=== PATIENT | male | born 1980 | race Caucasian/White ===

== ENCOUNTER 2020-10-28 17:34 | Emergency (ER) | payer OTHER, SELFPAY ==
[2020-10-28 17:46] VITALS: BP 149/97; PULSE 110; RESP 18; TEMP 37; O2SAT 100
--- NOTE | 2020-10-28 18:38 | ED.EAR ---
HPI - Ear Problem General Chief complaint: Ear Stated complaint: constance ear clogged Time Seen by Provider: 10/28/20 18:38 Source: patient and RN notes reviewed Mode of arrival: ambulatory Limitations: no limitations History of Present Illness HPI Narrative: 40-year-old male presents with concern for bilateral clogged ears. He denies pain, drainage. Reports he usually needs his ears cleaned out once every 1 or 2 years. He denies using Q-tips. MD Complaint: decreased hearing Related Data Allergies Allergy/AdvReac Type Severity Reaction Status Date / Time No Known Allergies Allergy Verified 10/28/20 18:50 Review of Systems Review of Systems: CONSTITUTIONAL: Denies malaise, chills, sweats, or fever. ENT: Denies rhinorrhea, congestion, sinus pain, otalgia or sore throat. Reports clogged ears All systems reviewed & are unremarkable except as noted in HPI and below PMFSH Comments At time of signature, agree with nursing past medical, surgical, social and family history. There is no relevant family history pertinent to the presenting complaint Exam Narrative: GENERAL: Well-appearing, well-nourished, and in no acute distress. HEAD: Normocephalic EYES: PERRLA, conjunctivae clear ENT: Mucous membranes moist. TM not visible due to cerumen impaction bilaterally; no tragal tenderness. NECK: Supple. No lymphadenopathy CHEST: No respiratory distress, speaks in full sentences. HEART: Regular rate and rhythm. SKIN: Warm, dry, no rash. NEURO: Alert and oriented x3. PSYCH: Normal mood and affect Course Course Emergency Course: Patient is aware of diagnosis, understands and agrees to treatment plan. Anticipatory guidance given. Patient agrees to follow-up as directed and is aware of reasons to seek care at the emergency department. Portions of this record may have been created with voice recognition software Vital Signs Vital signs: Vital Signs Temperature 98.6 F 10/28/20 17:46 Pulse Rate 110 H 10/28/20 17:46 Respiratory Rate 18 10/28/20 17:46 Blood Pressure 149/97 H 10/28/20 17:46 Pulse Oximetry 100 10/28/20 17:46 Temperature 98.6 F 10/28/20 17:46 Pulse Rate 110 H 10/28/20 17:46 Respiratory Rate 18 10/28/20 17:46 Blood Pressure 149/97 H 10/28/20 17:46 Pulse Oximetry 100 10/28/20 17:46 Reviewed. Pt has been instructed to follow up with his primary care provider within the next week regarding his elevated blood pressure today. Procedures Ear Wax Removal Both Ears: Ear Wax Removal Date: 10/28/20 Ear Wax Removal Time: 18:43 Cerumenolytic Used: 5-10% Sodium Bicarb solution Results: Re-examined: cerumen removed completely (Left ear) and some cerumen remains (Right ear) TM Examination: TM(s) intact, normal appearance Ear Canal Exam: atraumatic Patient Tolerated Procedure: well and no complications Complications: no problems Technique: ear canal irrigated (Left ear) and ear canal curetted (Right ear) Medical Decision Making MDM Narrative Medical decision making narrative: Differential diagnosis considered:Otitis media, otitis externa, cerumen impaction, foreign body, eustachian tube dysfunction. Exam findings show no acute concerns or changes; patient is non-toxic appearing and is in no distress. Patient is appropriate for outpatient treatment and follow-up. Vital Signs Vital Signs: Vital Signs Temperature 98.6 F 10/28/20 17:46 Pulse Rate 110 H 10/28/20 17:46 Respiratory Rate 18 10/28/20 17:46 Blood Pressure 149/97 H 10/28/20 17:46 Pulse Oximetry 100 10/28/20 17:46 Temperature 98.6 F 10/28/20 17:46 Pulse Rate 110 H 10/28/20 17:46 Respiratory Rate 18 10/28/20 17:46 Blood Pressure 149/97 H 10/28/20 17:46 Pulse Oximetry 100 10/28/20 17:46 Critical Care Time Critical Care Time Critical Care Time: No Discharge Plan Discharge Clinical Impression: Cerumen impaction Qualifiers: Laterality: bilateral Qual
== END 2020-10-28 18:51 | disposition home or self-care (01) ==
PROVIDERS: Emergency Provider Nurse Practitioner
DX: H61.23 Impacted cerumen, bilateral (principal)
CPT/HCPCS: 69210; 99212; G0463

== ENCOUNTER 2021-04-03 08:31 | Emergency (ER) | payer OTHER, SELFPAY ==
[2021-04-03 08:41] VITALS: BP 156/107; PULSE 81; RESP 16; TEMP 36.6; O2SAT 98
--- NOTE | 2021-04-03 08:48 | ED.EAR ---
HPI - Ear Problem General Chief complaint: Ear Stated complaint: right ear clogged Time Seen by Provider: 04/03/21 08:48 Source: patient Mode of arrival: ambulatory Limitations: no limitations History of Present Illness HPI Narrative: Ezequiel Griffith is a 40 yo male with no PMH according to pt (record documents metformin, ED) who comes to [facility] with right ear clogging once cerumen removed. He has high blood pressure reading today and denies that he is being treated for hypertension. Patient is a non-smoker nondrinker Related Data Home Medications Medication Instructions Recorded Confirmed metformin 500 mg PO DAILY 04/03/21 04/03/21 sildenafil 50 mg PO PRN PRN 04/03/21 04/03/21 Allergies Allergy/AdvReac Type Severity Reaction Status Date / Time No Known Allergies Allergy Verified 04/03/21 08:48 Review of Systems Review of Systems: CONSTITUTIONAL: Denies fever, chills, sweats. EYES: Denies visual changes, redness, discharge. ENT: Denies rhinorrhea, congestion, sore throat, otalgia. CARDIOVASCULAR: Denies chest pain, palpitations, edema. RESPIRATORY: Denies dyspnea, wheezing, cough GASTROINTESTINAL: Denies abdominal pain, nausea, vomiting, diarrhea. GENITOURINARY: Denies dysuria, hematuria, abnormal discharge SKIN: Denies rash or itching. NEUROLOGIC: Denies numbness, or focal weakness. PSYCHIATRIC: Denies anxiety or depression. Right ear has wax PMFSH Past Medical History Medical History Erectile dysfunction Prediabetes Social History Social History (Updated 04/03/21 @ 09:07 by Miriam Pham CNP) Smoking status: Never smoker Alcohol intake: never Comments At time of signature, I agree with nursing past medical, surgical, social and family history. There is no relevant family history pertinent to the presenting complaint. Exam Narrative: GENERAL: This is a well-nourished, well-developed patient, in no distress. HEAD: normocephalic, atraumatic. EYES: . Sclera clear/white. Vision is grossly intact. EARS: External ears normal, right ear has cerumen. Hearing grossly intact. NOSE: External nose normal without nasal discharge, nares without redness, no rhinorrhea. THROAT: Mucous membranes moist, NECK: Neck supple, non-tender CARDIOVASCULAR: Regular rate and rhythm . RESPIRATORY: Clear to auscultation. Breath sounds equal bilaterally. No wheezes, rales, or rhonchi. GASTROINTESTINAL: Not done SKIN: warm, intact with no suspicious lesions or rash, good texture and turgor. NEURO: awake, alert, and oriented to person, place and time. There were no obvious focal neurologic abnormalities. EXTREMITIES: Normal range of motion. Course Course Emergency Course: Patient comes with right ear decreased hearing Removal cerumen Level of Care: Express Care Visit Vital Signs Vital signs: Vital Signs Temperature 97.9 F 04/03/21 08:41 Pulse Rate 81 04/03/21 08:41 Respiratory Rate 16 04/03/21 08:41 Blood Pressure 156/107 H 04/03/21 08:41 Pulse Oximetry 98 04/03/21 08:41 Temperature 97.9 F 04/03/21 08:41 Pulse Rate 81 04/03/21 08:41 Respiratory Rate 16 04/03/21 08:41 Blood Pressure 156/107 H 04/03/21 08:41 Pulse Oximetry 98 04/03/21 08:41 Procedures Ear Wax Removal Right Ear: Ear Wax Removal Date: 04/03/21 Ear Wax Removal Time: 08:50 Results: Re-examined: cerumen removed completely TM Examination: TM(s) intact, normal appearance Ear Canal Exam: atraumatic Patient Tolerated Procedure: well Complications: no problems Technique: ear canal irrigated Medical Decision Making Differential Diagnosis Differential Diagnosis: Earwax versus otitis media Vital Signs Vital Signs: Vital Signs Temperature 97.9 F 04/03/21 08:41 Pulse Rate 81 04/03/21 08:41 Respiratory Rate 16 04/03/21 08:41 Blood Pressure 156/107 H 04/03/21 08:41 Pulse Oximetry 98
== END 2021-04-03 09:15 | disposition home or self-care (01) ==
PROVIDERS: Emergency Provider Nurse Practitioner
DX: H61.21 Impacted cerumen, right ear (principal); R73.03 Prediabetes
CPT/HCPCS: 69209; 99212; G0463

== ENCOUNTER 2024-06-28 17:34 | Emergency (ER) | payer OTHER, SELFPAY ==
[2024-06-28 17:45] VITALS: BP 183/99; PULSE 100; RESP 16; TEMP 36.5; O2SAT 98
--- NOTE | 2024-06-28 18:20 | ED.EAR ---
HPI - Ear Problem General Chief complaint: Ear Stated complaint: Both Ears Irritation Time Seen by Provider: 06/28/24 18:13 Source: patient and RN notes reviewed Mode of arrival: ambulatory Limitations: no limitations History of Present Illness HPI Narrative: 43-year-old Male presents with concern for clogged right ear. He denies pain or drainage. He reports history of having have his ears cleaned out. He acute MD Complaint: ear pain Related Data Home Medications ?Medication ?Instructions ?Recorded ?Confirmed ?Last Taken ?Type metformin 500 mg tablet,extended 500 mg PO DAILY 04/03/21 04/03/21 Unknown History release 24 hr sildenafil 50 mg tablet 50 mg PO PRN PRN Erectile 04/03/21 04/03/21 Unknown History Dysfunction aripiprazole 5 mg tablet mg 06/28/24 Unknown History bupropion HCl 300 mg 24 hr tablet, mg PO 06/28/24 Unknown History extended release escitalopram oxalate 10 mg tablet mg 06/28/24 Unknown History Allergies Allergy/AdvReac Type Severity Reaction Status Date / Time No Known Allergies Allergy Verified 06/28/24 17:48 Review of Systems Review of Systems: ENT: Denies rhinorrhea, congestion, sinus pain, and sore throat. Reports right ear fullness All systems reviewed & are unremarkable except as noted in HPI and below PMFSH Past Medical History Medical History Erectile dysfunction Prediabetes Social History Social History (Updated 04/03/21 @ 09:07 by Miriam Pham, JEAN) Smoking status: Never smoker Alcohol intake: never Comments At time of signature, agree with nursing past medical, surgical, social and family history. There is no relevant family history pertinent to the presenting complaint Exam Narrative: GENERAL: Well-appearing, well-nourished, and in no acute distress. HEAD: Normocephalic EYES: PERRLA, conjunctivae clear ENT: Nares clear. Mucous membranes moist. TM pearly tanner with dull light reflex on the left common TM not visible on the right due to cerumen impaction; no tragal tenderness. NECK: Supple. CHEST: No respiratory distress, speaks in full sentences. HEART: Regular rate and rhythm. SKIN: Warm, dry, no rash. NEURO: Alert and oriented x3. PSYCH: Normal mood and affect Course Course Emergency Course: Patient is aware of diagnosis, understands and agrees to treatment plan. Anticipatory guidance given. Patient agrees to follow-up as directed and is aware of reasons to seek care at the emergency department. Portions of this record may have been created with voice recognition software Level of Care: [facility] Visit Vital Signs Vital signs: Vital Signs Temperature 97.7 F 06/28/24 17:45 Pulse Rate 100 06/28/24 17:45 Respiratory Rate 16 06/28/24 17:45 Blood Pressure 183/99 H 06/28/24 17:45 Pulse Oximetry 98 06/28/24 17:45 Oxygen Delivery Room Air 06/28/24 17:45 Temperature 97.7 F 06/28/24 17:45 Pulse Rate 100 06/28/24 17:45 Respiratory Rate 16 06/28/24 17:45 Blood Pressure 183/99 H 06/28/24 17:45 Pulse Oximetry 98 06/28/24 17:45 Oxygen Delivery Room Air 06/28/24 17:45 Reviewed. Procedures Ear Wax Removal Right Ear: Ear Wax Removal Date: 06/28/24 Ear Wax Removal Time: 18:15 Cerumenolytic Used: other (Hydrogen peroxide) Results: Re-examined: cerumen removed completely TM Examination: TM(s) intact, normal appearance Ear Canal Exam: atraumatic Patient Tolerated Procedure: well and no complications Complications: no problems Technique: ear canal irrigated and ear canal curetted Medical Decision Making MDM Narrative Medical decision making narrative: I evaluated this in the [facility]. History is obtained from patient who is an independent historian and physical exam was performed.? Available medical records were reviewed. ? Exam findings and relevant testing show no acute concerns or changes; patient is non-toxic appearing and is in no distress. Differential diagnosis considered: Palmer virus, strep pharyngitis, allergic rhinitis, upper respiratory tract infection, sinusitis, rhinosinusitis, nasopharyngitis. viral pharyngitis, otitis media, otitis externa, otitis effusion, cerumen impaction, foreign body. Exam findings show no acute concerns or changes; patient is non-toxic appearing and is in no distress. Patient is appropriate for outpatient treatment and follow-up. ? Differential diagnosis and treatment plan were discussed with the patient. Patient agrees with discussion and after shared medical decision making agrees with plan of care. All questions were answered to the patient's satisfaction. Patient is appropriate for outpatient treatment and follow-up. Vital Signs Vital Signs: Vital Signs Temperature 97.7 F 06/28/24 17:45 Pulse Rate 100 06/28/24 17:45 Respiratory Rate 16 06/28/24 17:45 Blood Pressure 183/99 H 06/28/24 17:45 Pulse Oximetry 98 06/28/24 17:45 Oxygen Delivery Room Air 06/28/24 17:45 Temperature 97.7 F 06/28/24 17:45 Pulse Rate 100 06/28/24 17:45 Respiratory Rate 16 06/28/24 17:45 Blood Pressure 183/99 H 06/28/24 17:45 Pulse Oximetry 98 06/28/24 17:45 Oxygen Delivery Room Air 06/28/24 17:45 Critical Care Time Critical Care Time Critical Care Time: No Discharge Plan Discharge Clinical Impression: Cerumen impaction Patient Disposition: Home Condition: Stable Instructions: Carbamide Peroxide (Into the ear) Additional Instructions: Ear wax impaction is when ear wax builds up enough to cause symptoms. Normally, ear wax helps to protect the insides of the ears and prevents injury or infection. But having too much ear wax can cause symptoms such as pain and trouble hearing. The medical term for ear wax is cerumen. The insides of the ears do not usually need to be cleaned. Sticking anything into the ears can push the wax in deeper and cause impaction. How is ear wax impaction treated? There are several treatments to remove impacted ear wax. Treatment is usually only needed if the impaction is causing bothersome symptoms. Treatment is not recommended for removing ear wax in people who have no symptoms, even if their ears are impacted. There are several different ways to remove ear wax: ?Ear drops - Special ear drops can soften ear wax and help it to drain out. Ear drops are not usually safe for people with an ear infection or damage to the eardrum. ?Rinsing - In some cases, a doctor or nurse can remove impacted ear wax by squirting water (or a special liquid) into the ear to rinse it out. ?Special tools - A doctor or nurse might use a special tool to remove ear wax. There are different types of tools that can do this safely. These include small sticks, hooks, and spoons. There are also tools that use suction to pull the wax out. If you have recurrent cerumen impaction and no significant ear disease, you can use hydrogen peroxide to soften the wax so it comes out on its own. Do not put any tools on q-tips into your ears. Please use any drops that may have been prescribed to you. Follow up with your doctor if you have any new symptoms or concerns. Patient Language: Turkish Prescriptions: No Action sildenafil 50 mg tablet 50 mg PO PRN PRN (Reason: Erectile Dysfunction) metformin 500 mg tablet extended release 24 hr 500 mg PO DAILY escitalopram oxalate 10 mg tablet aripiprazole 5 mg tablet bupropion HCl 300 mg tablet extended release 24 hr PO Follow-up/Referrals: PHYSICIAN,MANAGER FOOD [Primary Care Provider] - Time of Disposition: 18:27
[2024-06-28] MEDS: HYDROGEN PEROXIDE 3% SOLN(*SP) 473 ML BOTTLE 50 ML IRRIGATION (19:49)
== END 2024-06-28 18:30 | disposition home or self-care (01) ==
PROVIDERS: Emergency Provider Nurse Practitioner
DX: H61.21 Impacted cerumen, right ear (principal); R73.03 Prediabetes
CPT/HCPCS: 69210; 99212; G0463